=== PATIENT | male | born 1960 | race Caucasian/White ===

== ENCOUNTER 2019-10-11 16:53 | Inpatient (IN) | payer OTHER ==
--- NOTE | 2019-10-11 21:06 | BHS.RME ---
Physical/Psych/Mental Status - Behavior Eye Contact: Normal - Cooperativeness Cooperativeness: Cooperative - Thinking Thought Processes: Logical - Physical Health Problems Is patient presently having any pain?: Yes (neck / back ) Does patient presently have any injuries (include location): No Does patient currently have a fever: No COWS - Scale Resting Pulse: 1= [place] 81-100 Sweatin= Chills/Flushing Restless Observation: 1= Difficult to Sit Still Pupil Size: 0= Normal to Room Light Bone or Joint Aches: 2= Severe Diffuse Aches Runny Nose/ Eye Tearin= Runny Nose/Eyes GI Upset > 30mins: 3= Vomiting/Diarrhea Tremor Observation: 1= Tremor [place], Not Seen Yawning Observation: 0= None Anxiety or Irritability: 2=Irritable/Anxious Goose Flesh Skin: 0=Smooth Skin COWS Score: 13
--- NOTE | 2019-10-11 21:13 | HP ---
COWS - Scale Resting Pulse: 1= [place] 81-100 Sweatin= Chills/Flushing Restless Observation: 1= Difficult to Sit Still Pupil Size: 0= Normal to Room Light Bone or Joint Aches: 2= Severe Diffuse Aches Runny Nose/ Eye Tearin= Runny Nose/Eyes GI Upset > 30mins: 3= Vomiting/Diarrhea Tremor Observation: 1= Tremor [place], Not Seen Yawning Observation: 0= None Anxiety or Irritability: 2=Irritable/Anxious Goose Flesh Skin: 0=Smooth Skin COWS Score: 13 CIWA Score - Admission Criteria [facility]ASAS Guidelines: Admission for Medically Managed Detox: Requires at least one of the followin. CIWA greater than 12 2. Seizures within the past 24 hours 3. Delirium tremens within the past 24 hours 4. Hallucinations within the past 24 hours 5. Acute intervention needed for co occurring medical disorder 6. Acute intervention needed for co occurring psychiatric disorder 7. Severe withdrawal that cannot be handled at a lower level of care (continued vomiting, continued diarrhea, abnormal vital signs) requiring intravenous medication and/or fluids 8. Admission [facility] Allergies/Adverse Reactions: Allergies Allergy/AdvReac Type Severity Reaction Status Date / Time lactose AdvReac Intermediate Vomiting Verified 10/11/19 21:32 Milk Containing Products AdvReac Swelling Verified 10/11/19 21:32 History of Present Illness: 58 y.o. male w/ heroin use reports 5-6 bags x 1 month via inhalation , latest use this morning . cocaine : 6-7 bags/day denies IV use etoh - 40 years ago tobacco : / ppd PMHX : ND , s/p AICD , chronic pain s/p C-spine and L-spine surgery , CHF w/ EF 25 % per pt SHx : lives in group home Exam Limitations: Clinical Condition - Review of Systems Constitutional: Loss of Appetite EENT: reports: Hearing Loss, Other (glasses , denies dysphagia) Respiratory: reports: No Symptoms reported Cardiac: reports: Chest Pain (intermittent - pt w/ cardiac hx on NTG) GI: reports: Diarrhea, Nausea, Poor Appetite, Vomiting : reports: Other (hesitancy) Musculoskeletal: reports: Back Pain, Joint Pain (left ankle reports h/o tear ligg.), Other (neck pain , ambulating w/ cane) Integumentary: reports: No Symptoms Reported Neuro: reports: Weakness, Unsteady Gait Endocrine: reports: No Symptoms Reported Psychiatric: reports: Orientated x3, Anxious, Depressed Patient History - Smoking Cessation Smoking history: Current every day smoker Hx Chewing Tobacco Use: No Initiated information on smoking cessation: Yes 'Breaking Loose' booklet given: 10/11/19 Admission Physical Exam S - Physical General Appearance: Yes: Disheveled, Moderate Distress, Anxious HEENTM: Yes: EOMI, Hearing grossly Normal, Normocephalic, Normal Voice Respiratory: Yes: Chest Non-Tender, Lungs Clear, Normal Breath Sounds, No Respiratory Distress, No Accessory Muscle Use Neck: Yes: No masses,lesions,Nodules, Trachea in good position, Other (surgical scar posterior cervical) Cardiology: Yes: Regular Rhythm, Regular Rate, S1, S2, Murmur (paced / AICD in place left anterior chest wall), Surgical Scar Abdominal: Yes: Non Tender, Soft Back: Yes: Surgical Scar (posterior cervical and lumbar midline) Musculoskeletal: Yes: Joint Stiffness (brittney knees , ankles), Other (unsteady gait) Extremities: Yes: Other (tenderness brittney knees) Neurological: Yes: Fully Oriented, Alert, Depressed Affect Integumentary: Yes: Dry, Warm - Diagnostic (1) Opioid abuse Current Visit: Yes Status: Acute (2) Cocaine abuse Current Visit: Yes Status: Chronic (3) Nicotine dependence Current Visit: Yes Status: Chronic Qualifiers: Nicotine product type: cigarettes Inpatient Rehab Admission - Rehab Decision to Admit Inpatient rehab admission?: No
[2019-10-11] MEDS ORDERED: MAGNESIUM HYDROX 2400MG/30ML ORAL SUSPENSION 30 ML CUP PO PRN (21:44)
[2019-10-11] MEDS ORDERED: MAG HYDROX/AL HYDROX/SIMETH 30 ML UNIT-DOSE CUP PO PRN (21:44)
[2019-10-11] MEDS ORDERED: P-EPHED 60MG/TRIPROLIDI 2.5MG TABLET PO PRN (21:44)
[2019-10-11] MEDS ORDERED: ACETAMINOPHEN 325 MG TABLET (FP) PO PRN ×2 (21:44)
[2019-10-11] MEDS ORDERED: MAGNESIUM CITRATE 300 ML BOTTLE PO PRN (21:44)
[2019-10-11] MEDS ORDERED: BISMUTH SUBSALICYLATE 524 MG/30 ML UD PO PRN (21:44)
[2019-10-11] MEDS ORDERED: MENTHOL/PHENOL 1 EACH UD MM PRN (21:44)
[2019-10-11] MEDS ORDERED: NITROGLYCERIN SUBLINGUAL 1/150 0.4 MG TAB SL PRN (21:45)
[2019-10-11 21:53] VITALS: BMI 23.5
[2019-10-11] MEDS ORDERED: METHADONE HCL 10 MG TABLET (FOR DETOX USE ONLY) PO ONE (23:15)
[2019-10-11] MEDS: CARVEDILOL 25 MG TABLET (FP) PO SCH (23:18)
[2019-10-11] MEDS: SPIRONOLACTONE 25 MG TABLET (FP) PO SCH (23:18)
[2019-10-11] MEDS: ATORVASTATIN CA 80 MG TABLET (FP) PO SCH (23:18)
[2019-10-11] MEDS: THIAMINE HCL 100 MG TABLET (FP) PO SCH (23:18)
[2019-10-11] MEDS: MELATONIN 5 MG TABLETS PO PRN (23:19)
[2019-10-12] MEDS ORDERED: METHADONE HCL 5 MG TABLET (FOR DETOX USE ONLY) PO ONE (10:00)
[2019-10-12] MEDS ORDERED: SACUBITRIL/VALSARTAN 49 MG-51 MG TABLET PO SCH (10:00)
[2019-10-12 10:04] LABS: HEMATOCRIT 33.2 % (35.4-49); HEMOGLOBIN 10.9 GM/dL (11.7-16.9); MCH 31.3 pg (25.7-33.7); MCHC 32.8 g/dl (32.0-35.9); MEAN CELL VOLUME 95.4 fl (80-96); MEAN PLT VOLUME 9.5 fl (7.5-11.1); PLATELET COUNT 189 K/MM3 (134-434); RBC 3.48 M/mm3 (4.00-5.60); RDW 14.5 % (11.9-15.9); WHITE BLOOD COUNT 5.5 K/mm3 (4.0-10.0)
--- NOTE | 2019-10-12 10:04 | PN ---
BHS COWS - Scale Resting Pulse: 0= [place] 80 or Below Sweatin= Chills/Flushing Restless Observation: 0= Sits Still Pupil Size: 1= Pupils >than Normal Bone or Joint Aches: 2= Severe Diffuse Aches Runny Nose/ Eye Tearin= Nasal Congestion GI Upset > 30mins: 0= None Tremor Observation of Outstretched Hands: 2= Slight Tremor Visible Yawning Observation: 0= None Anxiety or Irritability: 1=Feels Anxious/Irritable Goose Flesh Skin: 3=Piloerection COWS Score: 11 BHS Progress Note (SOAP) Subjective: 58 years old male admitted on 10/11/19 for opiate withdrawal sx management treating with methadone detox regiment ambulating in room with cane slow steady gait, alert no distress, speech clearly, ate breakfast tolerated food and fluid well Entresto standard bid daily signwriter call preferred pharmacy [phone] no record of medication case discussed with the patient that taking Entresto twice every day change Entresto to bid daily ambulating with cane since cervical 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 Objective: 10/12/19 13:13 Vital Signs Temperature 98.5 F 10/12/19 08:47 Pulse Rate 68 10/12/19 08:47 Respiratory Rate 18 10/12/19 08:47 Blood Pressure 137/79 10/12/19 08:47 O2 Sat by Pulse Oximetry (%) Laboratory Last Values WBC 5.5 K/mm3 (4.0-10.0) 10/12/19 07:45 RBC 3.48 M/mm3 (4.00-5.60) L 10/12/19 07:45 Hgb 10.9 GM/dL (11.7-16.9) L 10/12/19 07:45 Hct 33.2 % (35.4-49) L 10/12/19 07:45 MCV 95.4 fl (80-96) 10/12/19 07:45 MCH 31.3 pg (25.7-33.7) 10/12/19 07:45 MCHC 32.8 g/dl (32.0-35.9) 10/12/19 07:45 RDW 14.5 % (11.9-15.9) 10/12/19 07:45 Plt Count 189 K/MM3 (134-434) 10/12/19 07:45 MPV 9.5 fl (7.5-11.1) 10/12/19 07:45 Sodium 142 mmol/L (136-145) 10/12/19 07:45 Potassium 3.8 mmol/L (3.5-5.1) 10/12/19 07:45 Chloride 107 mmol/L (98-107) 10/12/19 07:45 Carbon Dioxide 30 mmol/L (21-32) 10/12/19 07:45 Anion Gap 5 MMOL/L (8-16) L 10/12/19 07:45 BUN 11.6 mg/dL (7-18) 10/12/19 07:45 Creatinine 0.6 mg/dL (0.55-1.3) 10/12/19 07:45 Est GFR (CKD-EPI)AfAm 126.66 10/12/19 07:45 Est GFR (CKD-EPI)NonAf 109.28 10/12/19 07:45 Random Glucose 102 mg/dL (74-106) 10/12/19 07:45 Calcium 7.7 mg/dL (8.5-10.1) L 10/12/19 07:45 Total Bilirubin 0.4 mg/dL (0.2-1) 10/12/19 07:45 AST 13 U/L (15-37) L 10/12/19 07:45 ALT 15 U/L (13-61) 10/12/19 07:45 Alkaline Phosphatase 63 U/L (45-117) 10/12/19 07:45 Total Protein 5.8 g/dl (6.4-8.2) L 10/12/19 07:45 Albumin 3.0 g/dl (3.4-5.0) L 10/12/19 07:45 RPR Titer Nonreactive (NONREACTIVE) 10/12/19 07:45 lab noted low Ca++ begin oscal 10/12/19 13:15 Assessment: 10/12/19 13:16 opiate withdrawal Plan: methadone regiment
[2019-10-12 10:13] LABS: BILIRUBIN,TOTAL 0.4 mg/dL (0.2-1); BLOOD UREA NITROGEN 11.6 mg/dL (7-18); CALCIUM 7.7 mg/dL (8.5-10.1); CREATININE 0.6 mg/dL (0.55-1.3); POTASSIUM 3.8 mmol/L (3.5-5.1); TOT PROT 5.8 g/dl (6.4-8.2)
[2019-10-12] MEDS: CLOPIDOGREL BISULFATE 75 MG TABLET (FP) PO SCH (10:17)
[2019-10-12] MEDS: PRENATAL VITAMINS W/ FOLIC ACID TABLET (FP) PO SCH (10:17)
[2019-10-12] MEDS: ASPIRIN COATED 81 MG TABLET.EC PO SCH (10:17)
[2019-10-12] MEDS: FUROSEMIDE 40 MG TABLET (FP) PO SCH (10:17)
[2019-10-12] MEDS: SPIRONOLACTONE 25 MG TABLET (FP) PO SCH ×2 (10:54→22:17)
[2019-10-12] MEDS: CARVEDILOL 25 MG TABLET (FP) PO SCH ×2 (10:55→22:18)
--- NOTE | 2019-10-12 11:03 | EKG ---
Test Reason : Blood Pressure : / mmHG Vent. Rate : 078 BPM Atrial Rate : 078 BPM P-R Int : 184 ms QRS Dur : 096 ms QT Int : 368 ms P-R-T Axes : 059 078 037 degrees QTc Int : 419 ms NORMAL SINUS RHYTHM POSSIBLE LEFT ATRIAL ENLARGEMENT POSSIBLE INFERIOR INFARCT , AGE UNDETERMINED ABNORMAL ECG NO PREVIOUS ECGS AVAILABLE Confirmed by Willard Holder MD ([id number]) on 10/12/2019 11:02:50 AM Referred By: JOEL WOODRUFF Confirmed By:Willard Holder MD
--- NOTE | 2019-10-12 11:24 | CONSULT ---
[facility] Psychiatric Consult - Data Date of interview: 10/12/19 Admission source: [facility] Identifying data: First visit at [facility] and admission to [address] [place] [address] for this 58 y/o male self-referred for detoxification treatment. MAGNOLIA issues : heroin, alcohol, nicotine. Patient is single, no dependents, homeless (resides in nursing home), unemployed, disabled and supported on SSI benefits. Substance Abuse History: Discussed with the patient. MAGNOLIA profile as follows : no alcohol use for 40 years ; relapsed 4-5 months ago. Consumes " everything ", bacardi rum, beer, vodka (1 pint daily). Patient admits to snorting heroin (5-7 bags/daily) + cocaine (6-7 bags/day). Smokes 1/2 pack of cigarettes daily. Medical History: Medical profile is remarkable for antecedent of myocardial infarction, s/p AICD (automated implantable cardioverter defibrillator), congestive heart failure (CHF), chronic lumbar pain and recent history of surgeries (cervical + lumbar spine). Patient ambulates with a cane. Psychiatric History: Patient denies history of psychiatric hospitalizations, OPD care or suicide attempts. Physical/Sexual Abuse/Trauma History: Patient denies. Additional Comment: Toxicology not available for review. Mental Status Exam - Mental Status Exam Alert and Oriented to: Time, Place, Person Cognitive Function: Grossly Intact Patient Appearance: Unkempt, Disheveled Mood: Nervous, Withdrawn Affect: Mood Congruent, Constricted Patient Behavior: Fatigued, Appropriate, Cooperative Speech Pattern: Clear, Appropriate Voice Loudness: Normal Thought Process: Intact, Goal Oriented Thought Disorder: Not Present Hallucinations: Denies Suicidal Ideation: Denies Homicidal Ideation: Denies Insight/Judgement: Poor Sleep: Fair Appetite: Fair Gait/Station: Other (walks with a cane) Psychiatric Findings - Problem List ([place] 1, 2,3) (1) Alcohol abuse Current Visit: Yes Status: Chronic (2) Opioid abuse Current Visit: Yes Status: Chronic (3) Cocaine abuse Current Visit: Yes Status: Chronic (4) Nicotine dependence Current Visit: Yes Status: Chronic Qualifiers: Nicotine product type: cigarettes - Initial Treatment Plan Initial Treatment Plan: Psychoeducation. Sleep hygiene. Detoxification. AA/NA meetings. Support. MAT services explained to patient. Observation.
[2019-10-12] MEDS: LIDOCAINE 5% TOPICAL PATCH TP SCH (15:00)
[2019-10-12] MEDS: CALCIUM 250MG/VIT-D 125 UNITS 1 COMBO TABLET PO SCH ×2 (18:38→22:18)
[2019-10-12] MEDS: ATORVASTATIN CA 80 MG TABLET (FP) PO SCH (22:15)
[2019-10-12] MEDS: THIAMINE HCL 100 MG TABLET (FP) PO SCH (22:15)
[2019-10-12] MEDS: LIDOCAINE PATCH REMOVAL MC SCH (22:16)
[2019-10-12] MEDS: SACUBITRIL/VALSARTAN 49 MG-51 MG TABLET PO SCH (22:19)
[2019-10-12] MEDS: MELATONIN 5 MG TABLETS PO PRN (22:20)
--- NOTE | 2019-10-13 09:30 | PN ---
BHS COWS - Scale Resting Pulse: 0= [place] 80 or Below Sweatin= No chills or Flushing Restless Observation: 0= Sits Still Pupil Size: 0= Normal to Room Light Bone or Joint Aches: 1= Mild Discomfort Runny Nose/ Eye Tearin= Nasal Congestion GI Upset > 30mins: 1= Stomach Cramp Tremor Observation of Outstretched Hands: 1= Tremor [place], Not Seen Yawning Observation: 2= >3x During Session Anxiety or Irritability: 1=Feels Anxious/Irritable Goose Flesh Skin: 0=Smooth Skin COWS Score: 7 BHS Progress Note (SOAP) Subjective: 58 years old male admitted on 10/11/19 for opiate withdrawal sx management treating with methadone detox regiment reports pace maker 1 1/2 years and is doing well patient will be discharged tomorrow 10/14/19 and 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 Objective: 10/13/19 09:33 Vital Signs Temperature 98.6 F 10/13/19 08:30 Pulse Rate 66 10/13/19 08:30 Respiratory Rate 18 10/13/19 08:30 Blood Pressure 146/75 10/13/19 08:30 O2 Sat by Pulse Oximetry (%) Laboratory Last Values WBC 5.5 K/mm3 (4.0-10.0) 10/12/19 07:45 RBC 3.48 M/mm3 (4.00-5.60) L 10/12/19 07:45 Hgb 10.9 GM/dL (11.7-16.9) L 10/12/19 07:45 Hct 33.2 % (35.4-49) L 10/12/19 07:45 MCV 95.4 fl (80-96) 10/12/19 07:45 MCH 31.3 pg (25.7-33.7) 10/12/19 07:45 MCHC 32.8 g/dl (32.0-35.9) 10/12/19 07:45 RDW 14.5 % (11.9-15.9) 10/12/19 07:45 Plt Count 189 K/MM3 (134-434) 10/12/19 07:45 MPV 9.5 fl (7.5-11.1) 10/12/19 07:45 Sodium 142 mmol/L (136-145) 10/12/19 07:45 Potassium 3.8 mmol/L (3.5-5.1) 10/12/19 07:45 Chloride 107 mmol/L (98-107) 10/12/19 07:45 Carbon Dioxide 30 mmol/L (21-32) 10/12/19 07:45 Anion Gap 5 MMOL/L (8-16) L 10/12/19 07:45 BUN 11.6 mg/dL (7-18) 10/12/19 07:45 Creatinine 0.6 mg/dL (0.55-1.3) 10/12/19 07:45 Est GFR (CKD-EPI)AfAm 126.66 10/12/19 07:45 Est GFR (CKD-EPI)NonAf 109.28 10/12/19 07:45 Random Glucose 102 mg/dL (74-106) 10/12/19 07:45 Calcium 7.7 mg/dL (8.5-10.1) L 10/12/19 07:45 Total Bilirubin 0.4 mg/dL (0.2-1) 10/12/19 07:45 AST 13 U/L (15-37) L 10/12/19 07:45 ALT 15 U/L (13-61) 10/12/19 07:45 Alkaline Phosphatase 63 U/L (45-117) 10/12/19 07:45 Total Protein 5.8 g/dl (6.4-8.2) L 10/12/19 07:45 Albumin 3.0 g/dl (3.4-5.0) L 10/12/19 07:45 RPR Titer Nonreactive (NONREACTIVE) 10/12/19 07:45 lab noted encourage over the counter calcium supplement Assessment: 10/13/19 09:34 opiate withdrawal 10/13/19 09:34 congestive heart failure Plan: methadone regiment nitro sl prn
[2019-10-13] MEDS ORDERED: METHADONE HCL 10 MG TABLET (FOR DETOX USE ONLY) PO ONE (10:00)
[2019-10-13] MEDS: CARVEDILOL 25 MG TABLET (FP) PO SCH ×2 (10:06→21:50)
[2019-10-13] MEDS: SPIRONOLACTONE 25 MG TABLET (FP) PO SCH ×2 (10:06→21:50)
[2019-10-13] MEDS: LIDOCAINE 5% TOPICAL PATCH TP SCH (10:07)
[2019-10-13] MEDS: FUROSEMIDE 40 MG TABLET (FP) PO SCH (10:07)
[2019-10-13] MEDS: PRENATAL VITAMINS W/ FOLIC ACID TABLET (FP) PO SCH (10:07)
[2019-10-13] MEDS: CLOPIDOGREL BISULFATE 75 MG TABLET (FP) PO SCH (10:07)
[2019-10-13] MEDS: ASPIRIN COATED 81 MG TABLET.EC PO SCH (10:07)
[2019-10-13] MEDS: SACUBITRIL/VALSARTAN 49 MG-51 MG TABLET PO SCH ×2 (10:07→21:49)
[2019-10-13] MEDS: CALCIUM 250MG/VIT-D 125 UNITS 1 COMBO TABLET PO SCH ×2 (13:45→21:50)
[2019-10-13] MEDS: THIAMINE HCL 100 MG TABLET (FP) PO SCH (21:50)
[2019-10-13] MEDS: ATORVASTATIN CA 80 MG TABLET (FP) PO SCH (21:50)
[2019-10-13] MEDS: MELATONIN 5 MG TABLETS PO PRN (21:50)
[2019-10-13] MEDS: LIDOCAINE PATCH REMOVAL MC SCH (21:50)
[2019-10-14] MEDS ORDERED: METHADONE HCL 5 MG TABLET (FOR DETOX USE ONLY) PO ONE (06:00)
[2019-10-14 06:21] VITALS: BP 152/89; PULSE 64; TEMP 97.7
--- NOTE | 2019-10-14 14:16 | DS ---
[facility] Detox Discharge Summary Admission Date: 10/11/19 Discharge Date: 10/14/19 - History Present History: Opioid Dependence Additional Comments: 58 years old male admitted on 10/11/19 for opiate withdrawal sx management treated [facility] methadone detox regiment Mr Church has completed the methadone regiment and is tolerated well seen by psychiatrist no medical intervention alert oriented x 3 ambulating with cane cardiac s1s2 regular rate rhythm ekg indicated left atrial enlargement septal infarc patient is asymptomatic no chest pain no dizziness no shortness of breath respiratory clear lungs bilaterally on auscultation abdomen soft no rebound tenderness Pertinent Past History: time for discharge 32 minutes patient prefers returning to his own outpatient facility and continue follow up with primary care cardiology - Physical Exam Results Vital Signs: Vital Signs Temperature 97.7 F 10/14/19 06:20 Pulse Rate 64 10/14/19 06:20 Respiratory Rate 18 10/14/19 06:30 Blood Pressure 152/89 10/14/19 06:20 O2 Sat by Pulse Oximetry (%) Pertinent Admission Physical Exam Findings: opiate withdrawal Laboratory Last Values WBC 5.5 K/mm3 (4.0-10.0) 10/12/19 07:45 RBC 3.48 M/mm3 (4.00-5.60) L 10/12/19 07:45 Hgb 10.9 GM/dL (11.7-16.9) L 10/12/19 07:45 Hct 33.2 % (35.4-49) L 10/12/19 07:45 MCV 95.4 fl (80-96) 10/12/19 07:45 MCH 31.3 pg (25.7-33.7) 10/12/19 07:45 MCHC 32.8 g/dl (32.0-35.9) 10/12/19 07:45 RDW 14.5 % (11.9-15.9) 10/12/19 07:45 Plt Count 189 K/MM3 (134-434) 10/12/19 07:45 MPV 9.5 fl (7.5-11.1) 10/12/19 07:45 Sodium 142 mmol/L (136-145) 10/12/19 07:45 Potassium 3.8 mmol/L (3.5-5.1) 10/12/19 07:45 Chloride 107 mmol/L (98-107) 10/12/19 07:45 Carbon Dioxide 30 mmol/L (21-32) 10/12/19 07:45 Anion Gap 5 MMOL/L (8-16) L 10/12/19 07:45 BUN 11.6 mg/dL (7-18) 10/12/19 07:45 Creatinine 0.6 mg/dL (0.55-1.3) 10/12/19 07:45 Est GFR (CKD-EPI)AfAm 126.66 10/12/19 07:45 Est GFR (CKD-EPI)NonAf 109.28 10/12/19 07:45 Random Glucose 102 mg/dL (74-106) 10/12/19 07:45 Calcium 7.7 mg/dL (8.5-10.1) L 10/12/19 07:45 Total Bilirubin 0.4 mg/dL (0.2-1) 10/12/19 07:45 AST 13 U/L (15-37) L 10/12/19 07:45 ALT 15 U/L (13-61) 10/12/19 07:45 Alkaline Phosphatase 63 U/L (45-117) 10/12/19 07:45 Total Protein 5.8 g/dl (6.4-8.2) L 10/12/19 07:45 Albumin 3.0 g/dl (3.4-5.0) L 10/12/19 07:45 RPR Titer Nonreactive (NONREACTIVE) 10/12/19 07:45 T.pallidum Ab Interpret Cancelled 10/12/19 07:45 lab noted low Ca++ Ca++ supplement - Treatment Hospital Course: Detox Protocol Followed, Detoxed Safely, Responded well, Discharged Condition Good, Rehab Referral Accepted Patient has Accepted a Rehab Referral to: [facility] - Medication Discharge Medications: Ambulatory Orders Acetaminophen 650 mg PO PRN 10/11/19 Aspirin [Aspirin EC] 81 mg PO DAILY 10/11/19 Atorvastatin Calcium 80 mg PO DAILY 10/11/19 Carvedilol 25 mg PO BID 10/11/19 Clopidogrel Bisulfate [Clopidogrel] 75 mg PO DAILY 10/11/19 Duloxetine HCl 20 mg PO BID 10/11/19 Furosemide 40 mg PO DAILY 10/11/19 Nitroglycerin 0.4 mg SL PRN 10/11/19 Sacubitril/Valsartan [Entresto 49 mg-51 mg Tablet] 1 each PO DAILY 10/11/19 Spironolactone 25 mg PO BID 10/11/19 - Diagnosis (1) Opioid dependence, uncomplicated Status: Acute (2) CHF (congestive heart failure) Status: Chronic Qualifiers: Heart failure type: systolic Heart failure chronicity: chronic Qualified Code(s): I50.22 - Chronic systolic (congestive) heart failure (3) Cardiac defibrillator in situ Status: Chronic (4) Unstable angina pectoris Status: Chronic (5) Nicotine dependence Status: Acute Qualifiers: Nicotine product type: cigarettes Substance use status: in withdrawal Qualified Code(s): F17.213 - Nicotine dependence, cigarettes, with withdrawal - AMA Did Patient Leave Against Medical Advice: No COWS (PN) - Opiate Withdrawal Resting Pulse: 0= [place] 80 or Below Sweatin= No chills or Flushing Restless Observation: 0= Sits Still Pupil Size: 0= Normal to Room Light Bone or Joint Aches: 1= Mild Discomfort Runny Nose/ Eye Tearin= None GI Upset > 30mins: 0= None Tremor Observation of Outstretched Hands: 0= None Yawning Observation: 2= >3x During Session Anxiety or Irritability: 1=Feels Anxious/Irritable Goose Flesh Skin: 0=Smooth Skin COWS Score: 4
== END 2019-10-14 09:03 | disposition home or self-care (01) | DRG 773 ==
LOC: YASAS 16:53 → Y3N 22:18
PROVIDERS: ADMIT Allergy & Immunology; ATTEND Allergy & Immunology
PROC: HZ2ZZZZ Detoxification Services for Substance Abuse Treatment (ICD-10-PCS; principal; 2019-10-11)
DX: F11.23 Opioid dependence with withdrawal (principal); F10.20 Alcohol dependence, uncomplicated; F14.20 Cocaine dependence, uncomplicated; F17.210 Nicotine dependence, cigarettes, uncomplicated; I25.110 Atherosclerotic heart disease of native coronary artery with unstable angina pectoris; I50.22 Chronic systolic (congestive) heart failure; I25.2 Old myocardial infarction; E83.51 Hypocalcemia; Z79.82 Long term (current) use of aspirin; Z79.02 Long term (current) use of antithrombotics/antiplatelets; M54.5 Low back pain; G89.29 Other chronic pain; Z95.810 Presence of automatic (implantable) cardiac defibrillator; Z91.041 Radiographic dye allergy status; Z91.011 Allergy to milk products; Z56.0 Unemployment, unspecified; Z59.0 Homelessness; Z99.89 Dependence on other enabling machines and devices; Z98.890 Other specified postprocedural states
CPT/HCPCS: 36415; 71046-TC-FY; 80053; 85027; 86593; 93005; 93010